=== PATIENT | female | born 1970 | race African-American/Black ===

== ENCOUNTER 2022-04-09 18:59 | Inpatient (IN) | payer OTHER ==
[2022-04-09] MEDS ORDERED: ACETAMINOPHEN 1000 MG/100 ML BAG IVPB ONE ×2 (20:50→20:56)
[2022-04-09] MEDS ORDERED: SODIUM CHLORIDE 0.9% 500 ML INFUS.BAG IV ONE (20:50)
[2022-04-09] MEDS ORDERED: morphine CARPU-JECT 4 MG/1 ML DISP.SYRIN IVPUSH ONE (20:50)
[2022-04-09] MEDS ORDERED: ONDANSETRON 4 MG/2 ML VIAL IVPUSH ONE (20:50)
[2022-04-09] MEDS ORDERED: morphine SULFATE 4 MG/ML VIAL ONE (21:28)
[2022-04-09] MEDS ORDERED: ACETAMINOPHEN INJECTION 100 ML IVPB ONE (21:28)
[2022-04-09] MEDS ORDERED: ONDANSETRON 4 MG/2 ML VIAL ONE (21:28)
[2022-04-09 21:45] LABS: BASO % 0.3 % (0-2.0); HEMATOCRIT 31.4 % (32.4-45.2); HEMOGLOBIN 10.7 GM/dL (10.7-15.3); LYMPH % 5.4 % (8-40); MCH 31.6 pg (25.7-33.7); MEAN PLT VOLUME 8.6 fl (7.5-11.1); MONO % 8.1 % (3.8-10.2); NEUT % 86.2 % (42.8-82.8); PLATELET COUNT 123 10^3/uL (134-434); RBC 3.37 M/mm3 (3.60-5.2); RDW 14.8 % (11.6-15.6); WHITE BLOOD COUNT 7.2 K/mm3 (4.0-10.0)
[2022-04-09 21:52] LABS: INR 1.21 (0.83-1.09)
[2022-04-09 21:55] LABS: ACTIVATED PTT 27.9 SECONDS (25.2-36.5)
[2022-04-09 22:13] LABS: CHLORIDE 102 mmol/L (98-107); SODIUM 140 mmol/L (136-145)
[2022-04-09 22:16] LABS: ALBUMIN 3.5 g/dl (3.4-5.0); BLOOD UREA NITROGEN 39.2 mg/dL (7-18); CALCIUM 9.5 mg/dL (8.5-10.1); CO2 27 mmol/L (21-32); GLUCOSE,RANDOM 97 mg/dL (74-106); LIPASE 297 U/L (73-393); MAGNESIUM 1.7 mg/dL (1.8-2.4)
[2022-04-09 22:19] LABS: SGOT/AST 12 U/L (15-37); SGPT/ALT 14 U/L (13-61)
[2022-04-09 22:20] LABS: TOT PROT 6.6 g/dl (6.4-8.2)
[2022-04-09 22:22] LABS: ALK PHOS 76 U/L (45-117)
[2022-04-09 22:39] LABS: ERYTHROCYTE SEDIMENTATION RATE 27 mm/hr (0-30)
[2022-04-09 22:44] LABS: ANION GAP 11 MMOL/L (8-16); CREATININE 7.4 mg/dL (0.55-1.3)
[2022-04-09] MEDS ORDERED: POTASSIUM CHLORIDE ORAL LIQUID 20 MEQ/15 ML PO ONE (23:02)
[2022-04-09 23:04] LABS: BILIRUBIN,TOTAL 0.6 mg/dL (0.2-1)
[2022-04-10] MEDS ORDERED: POTASSIUM CHLORIDE TABS 20 MEQ TABLET.ER (FP) PO ONE ×3 (00:19→15:18)
[2022-04-10] MEDS ORDERED: ONDANSETRON 4 MG/2 ML VIAL IVPUSH ONE (01:18)
[2022-04-10] MEDS ORDERED: ONDANSETRON 4 MG/2 ML VIAL ONE ×2 (01:19→08:49)
[2022-04-10] MEDS ORDERED: morphine CARPU-JECT 4 MG/1 ML DISP.SYRIN IVPUSH ONE (02:04)
[2022-04-10 02:18] LABS: EPI CELLS 16 /uL (0-25.1); HYALINE CASTS 0 /uL (0-3.1); PH,URINE 7.5 (5.0-8.0); URINE APPEARANCE CLEAR; URINE BACTERIA 145 /uL (0-1359); URINE BILIRUBIN NEGATIVE (NEGATIVE); URINE COLOR YELLOW; URINE GLUCOSE (UA) NEGATIVE (NEGATIVE); URINE KETONE NEGATIVE (NEGATIVE); URINE LEUK ESTERASE NEGATIVE (NEGATIVE); URINE NITRITE NEGATIVE (NEGATIVE); URINE PROTEIN 3+ (NEGATIVE); URINE RBC 25 /uL (0-23.9); URINE UROBILINOGEN 0.2 mg/dL (0.2-1.0); URINE WBC 9 /uL (0-25.8)
[2022-04-10] MEDS ORDERED: TRIMETHOBENZAMIDE HCL 200MG/2ML INJ IM ONE (02:43)
[2022-04-10] MEDS ORDERED: HEPARIN NA (PORCINE) 5,000 UNITS/ML 1ML VIAL SQ ONE (03:14)
[2022-04-10] MEDS ORDERED: ACETAMINOPHEN 1000 MG/100 ML BAG IVPB PRN (03:27)
[2022-04-10] MEDS ORDERED: morphine CARPU-JECT 4 MG/1 ML DISP.SYRIN IVPUSH PRN ×2 (03:28→03:32)
[2022-04-10] MEDS ORDERED: MAGNESIUM SULF 50% (8.12 MEQ/2 ML-1 GM VIAL) IVPB ONE (03:34)
[2022-04-10] MEDS ORDERED: MAGNESIUM 1GM/D5W - 1 GM/100 ML IVPB IVPB ONE (03:44)
[2022-04-10] MEDS ORDERED: HEPARIN NA (PORCINE) 5,000 UNITS/ML 1ML VIAL ONE (03:44)
[2022-04-10] MEDS: KCL 10 MEQ IVPB 10 MEQ/100 ML INFUS.BAG IVPB SCH ×2 (04:30→08:57)
[2022-04-10] MEDS: HEPARIN NA (PORCINE) 5,000 UNITS/ML 1ML VIAL SQ SCH ×2 (05:24→15:46)
[2022-04-10 07:07] LABS: BASO % 0.3 % (0-2.0); HEMATOCRIT 29.2 % (32.4-45.2); HEMOGLOBIN 9.9 GM/dL (10.7-15.3); LYMPH % 5.2 % (8-40); MCH 31.6 pg (25.7-33.7); MCHC 33.9 g/dl (32.0-36.0); MEAN CELL VOLUME 93.1 fl (80-96); MEAN PLT VOLUME 8.7 fl (7.5-11.1); MONO % 9.9 % (3.8-10.2); NEUT % 84.6 % (42.8-82.8); PLATELET COUNT 101 10^3/uL (134-434); RBC 3.13 M/mm3 (3.60-5.2); RDW 14.9 % (11.6-15.6); WHITE BLOOD COUNT 5.8 K/mm3 (4.0-10.0)
[2022-04-10 07:20] LABS: CALCIUM 8.6 mg/dL (8.5-10.1)
[2022-04-10 07:21] LABS: MAGNESIUM 1.7 mg/dL (1.8-2.4)
[2022-04-10 07:24] LABS: PHOSPHOROUS 3.4 mg/dL (2.5-4.9)
[2022-04-10 07:27] LABS: CREATININE 7.4 mg/dL (0.55-1.3)
[2022-04-10] MEDS ORDERED: NAPH,MB-DB/K PH,MBDB POWDER PACKET PO ONE (08:55)
[2022-04-10] MEDS: ONDANSETRON 4 MG/2 ML VIAL IVPUSH PRN ×3 (08:58→21:29)
[2022-04-10] MEDS ORDERED: NAPH,MB-DB/K PH,MBDB POWDER PACKET ONE (10:11)
[2022-04-10] MEDS ORDERED: HEPARIN NA (PORCINE) 5,000 UNITS/ML 1ML VIAL IVPUSH ONE (10:21)
[2022-04-10] MEDS ORDERED: SODIUM CHLORIDE 250 ML IV PRN (10:21)
[2022-04-10] MEDS ORDERED: PROMETHAZINE HCL 25 MG/1 ML VIAL IVPUSH PRN (10:31)
[2022-04-10] MEDS ORDERED: SODIUM CHLORIDE 0.9% 1000 ML INFUS.BAG IV ONE (10:31)
[2022-04-10] MEDS: azaTHIOprine 50 MG TABLET PO SCH ×2 (10:32→21:32)
[2022-04-10] MEDS: predniSONE 5 MG TABLET (UD) PO SCH ×2 (10:33→21:25)
[2022-04-10] MEDS ORDERED: EPOETIN ALFA-EPBX 4,000 UNIT/ML VIAL IVPUSH ONE (11:00)
[2022-04-10] MEDS: HEPARIN NA (PORCINE) 5,000 UNITS/ML 1ML VIAL IVPUSH SCH ×3 (12:45→14:39)
[2022-04-10] MEDS: SODIUM CHLORIDE 1,000 ML IV SCH (15:52)
[2022-04-10] MEDS: ACETAMINOPHEN 325 MG TABLET (FP) PO PRN ×2 (16:15→21:25)
[2022-04-10] MEDS: GABAPENTIN 100 MG CAPSULE PO SCH (21:25)
[2022-04-11] MEDS: ONDANSETRON 4 MG/2 ML VIAL IVPUSH PRN (06:12)
[2022-04-11] MEDS: predniSONE 5 MG TABLET (UD) PO SCH ×2 (11:22→21:36)
[2022-04-11] MEDS: azaTHIOprine 50 MG TABLET PO SCH ×2 (11:23→21:36)
[2022-04-11] MEDS ORDERED: HEPARIN NA (PORCINE) 5,000 UNITS/ML 1ML VIAL IVPUSH ONE (13:27)
[2022-04-11] MEDS ORDERED: SODIUM CHLORIDE 250 ML IV PRN (13:27)
[2022-04-11] MEDS ORDERED: EPOETIN ALFA-EPBX 4,000 UNIT/ML VIAL SQ ONE (13:27)
[2022-04-11] MEDS: HEPARIN NA (PORCINE) 5,000 UNITS/ML 1ML VIAL IVPUSH SCH ×3 (14:30→16:30)
[2022-04-11] MEDS: SODIUM CHLORIDE 1,000 ML IV SCH (15:57)
[2022-04-11 16:02] LABS: BASO % 0.3 % (0-2.0); EOS % 0.4 % (0-4.5); HEMATOCRIT 27.4 % (32.4-45.2); HEMOGLOBIN 9.3 GM/dL (10.7-15.3); LYMPH % 6.4 % (8-40); MCH 31.3 pg (25.7-33.7); MEAN CELL VOLUME 92.2 fl (80-96); MEAN PLT VOLUME 9.2 fl (7.5-11.1); MONO % 13.5 % (3.8-10.2); NEUT % 79.4 % (42.8-82.8); PLATELET COUNT 104 10^3/uL (134-434); RBC 2.97 M/mm3 (3.60-5.2); RDW 14.8 % (11.6-15.6); WHITE BLOOD COUNT 3.8 K/mm3 (4.0-10.0)
[2022-04-11 16:27] LABS: ALBUMIN 3.1 g/dl (3.4-5.0); BLOOD UREA NITROGEN 22.8 mg/dL (7-18)
[2022-04-11 16:29] LABS: CREATININE 4.7 mg/dL (0.55-1.3); PHOSPHOROUS 2.6 mg/dL (2.5-4.9)
[2022-04-11 16:32] LABS: BILIRUBIN,TOTAL 0.5 mg/dL (0.2-1)
[2022-04-11] MEDS ORDERED: HYDROXYCHLOROQUINE SO4 200 MG TABLET (FP) PO SCH (17:30)
[2022-04-11] MEDS: GABAPENTIN 100 MG CAPSULE PO SCH (21:36)
[2022-04-12] MEDS: predniSONE 5 MG TABLET (UD) PO SCH ×2 (10:20→21:19)
[2022-04-12] MEDS: azaTHIOprine 50 MG TABLET PO SCH ×2 (10:20→21:19)
[2022-04-12 10:31] LABS: HEMATOCRIT 25.4 % (32.4-45.2); HEMOGLOBIN 8.5 GM/dL (10.7-15.3); MCH 31.1 pg (25.7-33.7); MCHC 33.4 g/dl (32.0-36.0); MEAN PLT VOLUME 9.3 fl (7.5-11.1); PLATELET COUNT 109 10^3/uL (134-434); RBC 2.73 M/mm3 (3.60-5.2); RDW 14.6 % (11.6-15.6); WHITE BLOOD COUNT 3.3 K/mm3 (4.0-10.0)
[2022-04-12 11:02] LABS: CALCIUM 9.3 mg/dL (8.5-10.1)
[2022-04-12 11:04] LABS: BLOOD UREA NITROGEN 19.2 mg/dL (7-18)
[2022-04-12 11:07] LABS: CREATININE 5.5 mg/dL (0.55-1.3); TOT PROT 5.6 g/dl (6.4-8.2)
[2022-04-12 11:08] LABS: BILIRUBIN,TOTAL 0.4 mg/dL (0.2-1)
[2022-04-12] MEDS ORDERED: POTASSIUM CHLORIDE TABS 20 MEQ TABLET.ER (FP) PO ONE ×2 (13:05→15:44)
[2022-04-12] MEDS: SODIUM CHLORIDE 1,000 ML IV SCH (16:11)
[2022-04-12] MEDS: GABAPENTIN 100 MG CAPSULE PO SCH (21:20)
[2022-04-13 08:43] VITALS: BP 120/77; PULSE 64; RESP 17; TEMP 98.2
[2022-04-13] MEDS: predniSONE 5 MG TABLET (UD) PO SCH (09:50)
[2022-04-13] MEDS: azaTHIOprine 50 MG TABLET PO SCH (09:50)
== END 2022-04-13 12:53 | disposition home or self-care (01) | DRG 391 ==
LOC: JER 18:59 → JERBED 23:52 → J5S 04-10 12:29
PROVIDERS: ADMIT Internal Medicine; ATTEND Internal Medicine
PROC: 5A1D70Z Performance of Urinary Filtration, Intermittent, Less than 6 Hours Per Day (ICD-10-PCS; principal; 2022-04-11)
DX: K52.9 Noninfective gastroenteritis and colitis, unspecified (principal); N18.6 End stage renal disease; D61.818 Other pancytopenia; M32.9 Systemic lupus erythematosus, unspecified; E87.6 Hypokalemia; D69.6 Thrombocytopenia, unspecified; Z86.2 Personal history of diseases of the blood and blood-forming organs and certain disorders involving the immune mechanism; E83.42 Hypomagnesemia; Z99.2 Dependence on renal dialysis
CPT/HCPCS: 36415; 71045-TC-FY; 74177-TC; 76705-TC; 80048; 80053; 81003; 82728; 83540; 83550; 83605; 83690; 83735; 84100; 84484; 85025; 85027; 85610; 85651; 85730; 86038; 86140; 86160; 86225; 86704; 86803; 86850; 86870; 86900; 86901; 86902; 87040; 87086; 87340; 87517; 93005; 93010; 99285-25; C9803-CS; J1644; Q5106; Q9967; U0003; U0005